=== PATIENT | female | born 2000 | race Two or more races ===

== ENCOUNTER 2023-01-28 01:12 | Emergency (ER) | payer OTHER ==
[~2023-01-28] VITALS: Ht 167.6 cm; Wt 60.8 kg
[2023-01-28] MEDS ORDERED: CRESTOR5 MG PO (01:53)
== END 2023-01-28 04:22 | disposition home or self-care (01) ==
LOC: ER 01:12
DX: E11.649 Type 2 diabetes mellitus with hypoglycemia without coma (principal)